=== PATIENT | female | born 1950 | race Caucasian/White ===

== ENCOUNTER 2021-08-28 09:50 | Emergency (ER) | payer OTHER ==
[~2021-08-28] VITALS: Ht 160 cm; Wt 54.4 kg
[~2021-08-28 09:50] MED LIST: CATAFLAM50 MG PO
[2021-08-28] MEDS ORDERED: INTESTINEX680 M1 PO (16:05)
[2021-08-28] MEDS ORDERED: LEVSIN/SL0.125 MG PO (16:05)
== END 2021-08-28 16:18 | disposition home or self-care (01) ==
LOC: ER 09:50
DX: K57.90 Diverticulosis of intestine, part unspecified, without perforation or abscess without bleeding (principal)